=== PATIENT | male | born 1940 | race Caucasian/White ===

== ENCOUNTER 2018-09-03 14:15 | Inpatient (IN) | payer OTHER ==
[~2018-09-03] VITALS: Ht 188 cm; Wt 88.5 kg
[2018-09-03] MEDS ORDERED: XARELTO20 MG PO (15:58)
[2018-09-03] MEDS ORDERED: TOPROL XL50 M1 PO (15:59)
[2018-09-03] MEDS ORDERED: AVAPRO300 MG PO (15:59)
[2018-09-03] MEDS ORDERED: PACERONE200 MG PO (15:59)
[2018-09-03] MEDS ORDERED: SIMVASTATIN40 MG PO (16:00)
[2018-09-03] MEDS ORDERED: OXYBUTYNIN CHLO15 MG PO (16:00)
[2018-09-03] MEDS ORDERED: FUROSEMIDE20 MG PO (16:00)
[2018-09-03] MEDS ORDERED: CASODEX50 MG PO (16:01)
[2018-09-03] MEDS ORDERED: FAMOTIDINE20 MG PO (16:01)
[2018-09-03] MEDS ORDERED: GABAPENTIN400 MG PO (16:01)
[2018-09-06] MEDS ORDERED: DOCUSATE SODIU100 MG PO (10:26)
[2018-09-06] MEDS ORDERED: CLONAZEPAM1 MG PO (10:27)
[2018-09-06] MEDS ORDERED: PERCOCET 5-3251 EACH PO (10:27)
[2018-09-06] MEDS ORDERED: CIPROFLOXACIN750 MG PO (10:27)
== END 2018-09-06 17:22 | disposition still patient (30) | DRG 454 ==
LOC: O/R 09-05 05:00 → PED 09-05 05:00 → SURH 09-05 07:00 → PED 09-05 15:56
PROVIDERS: Orthopaedic Surgery Orthopaedic Surgery of the Spine
PROC: 0RG2071 Fusion of 2 or more Cervical Vertebral Joints with Autologous Tissue Substitute, Posterior Approach, Posterior Column, Open Approach (ICD-10-PCS; 2018-09-05)
PROC: 0RT30ZZ Resection of Cervical Vertebral Disc, Open Approach (ICD-10-PCS; 2018-09-05)
PROC: 07DS3ZZ Extraction of Vertebral Bone Marrow, Percutaneous Approach (ICD-10-PCS; 2018-09-05)
PROC: 4A033R1 Measurement of Arterial Saturation, Peripheral, Percutaneous Approach (ICD-10-PCS; 2018-09-05)
PROC: 0RG20A0 Fusion of 2 or more Cervical Vertebral Joints with Interbody Fusion Device, Anterior Approach, Anterior Column, Open Approach (ICD-10-PCS; principal; 2018-09-05 07:00)
DX: M50.01 Cervical disc disorder with myelopathy, high cervical region (principal); M47.12 Other spondylosis with myelopathy, cervical region; I10 Essential (primary) hypertension; E11.9 Type 2 diabetes mellitus without complications